=== PATIENT | male | born 1940 | race African-American/Black ===

== ENCOUNTER 2021-07-08 09:52 | Emergency (ER) | payer MEDICARE ==
[~2021-07-08 09:52] MED LIST: ARICEPT 5MG TABL5 MG PO; CEFDINIR300 MG PO; DILTIAZEM125 MG/122 PO; KEPPRA100 MG/1 M PO; MACROBID100 MG PO; MACRODANTIN50 MG PO; METFORMIN HYDRO25 GM PO; METOPROLOL SUCC25 MG PO; PAROXETINE 20MG20 MG PO; PRINIVIL10 MG PO; PROSCAR5 MG PO; PYRIDIUM100 MG PO; SENOKOT8.6 MG PO
[2021-07-08 11:30] LABS: BASOPHIL 0.4 % (0-2); EOSINOPHIL 3.7 % (0-7); HCT 35.4 % (42.0-52.0); HGB 10.8 g/dl (13.2-18.0); MCH 26.5 pg (25.0-31.0); MCHC 30.5 g/dL (32.0-36.0); MCV 86.8 fL (78.0-100.0); MONOCYTE 9.5 % (0-12); MPV 10.9 fL (6.0-9.5); NEUTROPHIL 70.4 % (41-80); NRBC 0; PLT 245 K/uL (150-400); RBC 4.08 M/uL (4.70-6.00); RDW 14.4 % (11.5-14.0); WBC 7.9 K/uL (4.0-10.5)
[2021-07-08 11:46] LABS: ALBUMIN 3.3 g/dL (3.4-5.0); BILIRUBIN - TOTAL 0.2 mg/dL (0.2-1.0); BUN/CREAT RATIO (CALC) 11.6 RATIO; CREATININE 1.12 mg/dL (0.67-1.17); GLOBULIN (CALCULATION) 4.1 g/dL; POTASSIUM 3.8 mmol/L (3.5-5.1); TOTAL PROTEIN 7.4 g/dL (6.4-8.2)
[2021-07-08 12:06] LABS: INR 1.31 (0.9-1.2); PROTHROMBIN TIME 15.6 SECONDS (11.8-13.4); PTT 32.9 SECONDS (24.4-34.7)
[2021-07-08 13:13] LABS: BILIRUBIN 1+ mg/dL (NEGATIVE); BLOOD 3+ Ery/uL (NEGATIVE); CLARITY CLEAR (CLEAR); COLOR YELLOW (YELLOW); GLUCOSE (U) NORMAL (NORMAL); LEUKOCYTES 2+ Leu/uL (NEGATIVE); NITRITE POSITIVE (NEGATIVE); PROTEIN 3+ mg/dL (NEGATIVE); SPECIFIC GRAVITY 1.025 (1.001-1.030)
[2021-07-08 13:26] LABS: BACTERIA 4+; SQUAMOUS EPITHELIAL CELLS RARE; URINARY RBC TNTC
[2021-07-08] MEDS ORDERED: BACTRIM DS TAB1 EACH PO (14:14)
== END 2021-07-08 16:43 | disposition home or self-care (01) ==
LOC: FER 09:52
PROVIDERS: Emergency Medicine
DX: N39.0 Urinary tract infection, site not specified (principal); K59.00 Constipation, unspecified; E11.9 Type 2 diabetes mellitus without complications; I10 Essential (primary) hypertension; Z86.73 Personal history of transient ischemic attack (TIA), and cerebral infarction without residual deficits; Z79.01 Long term (current) use of anticoagulants
CPT/HCPCS: 36415; 80053; 81001; 85025; 85610; 85730; 87077; 87088; 87186

== ENCOUNTER 2021-08-01 11:10 | Emergency (ER) | payer MEDICARE ==
[~2021-08-01 11:10] MED LIST changes: +BACTRIM DS TAB1 EACH PO
[2021-08-01 13:30] LABS: BASOPHIL 0.4 % (0-2); EOSINOPHIL 0.4 % (0-7); HCT 34.7 % (42.0-52.0); HGB 10.5 g/dl (13.2-18.0); LYMPHOCYTE 5.5 % (15-48); MCH 26.7 pg (25.0-31.0); MCHC 30.3 g/dL (32.0-36.0); MCV 88.3 fL (78.0-100.0); MONOCYTE 5.9 % (0-12); MPV 11.2 fL (6.0-9.5); NEUTROPHIL 86.9 % (41-80); NRBC 0; PLT 195 K/uL (150-400); RBC 3.93 M/uL (4.70-6.00); RDW 14.6 % (11.5-14.0); WBC 11.1 K/uL (4.0-10.5)
[2021-08-01 14:20] LABS: ALBUMIN 3.1 g/dL (3.4-5.0); BILIRUBIN - TOTAL 0.2 mg/dL (0.2-1.0); BUN/CREAT RATIO (CALC) 14.7 RATIO; CREATININE 1.02 mg/dL (0.67-1.17); GLOBULIN (CALCULATION) 4.5 g/dL; POTASSIUM 4.3 mmol/L (3.5-5.1); TOTAL PROTEIN 7.6 g/dL (6.4-8.2)
[2021-08-01 15:44] LABS: BILIRUBIN NEGATIVE (NEGATIVE); BLOOD NEGATIVE Ery/uL (NEGATIVE); CLARITY CLEAR (CLEAR); COLOR YELLOW (YELLOW); GLUCOSE (U) NORMAL (NORMAL); LEUKOCYTES NEGATIVE Leu/uL (NEGATIVE); NITRITE NEGATIVE (NEGATIVE); PROTEIN TRACE (LOW) mg/dL (NEGATIVE); SPECIFIC GRAVITY >=1.030 (1.001-1.030); UROBILINOGEN 0.2 mg/dL (0.2-1.0)
[2021-08-01 15:53] LABS: BACTERIA TRACE; MUCOUS TRACE
== END 2021-08-01 17:55 | disposition home or self-care (01) ==
LOC: FER 11:10
PROVIDERS: Nurse Practitioner Family
DX: K59.00 Constipation, unspecified (principal); R11.10 Vomiting, unspecified; E11.9 Type 2 diabetes mellitus without complications; Z86.73 Personal history of transient ischemic attack (TIA), and cerebral infarction without residual deficits; Z88.5 Allergy status to narcotic agent; Z88.6 Allergy status to analgesic agent; Z88.1 Allergy status to other antibiotic agents; Z20.822 Contact with and (suspected) exposure to COVID-19
CPT/HCPCS: 36415; 74022; 80053; 81001; 84484; 85025; 93005; U0002

== ENCOUNTER 2022-06-24 10:33 | Inpatient (IN) | payer OTHER, MEDICARE ==
[~2022-06-24] VITALS: Ht 170.2 cm; Wt 89.0 kg
[2022-06-24 11:41] LABS: BASOPHIL 0.2 % (0-2); EOSINOPHIL 0.1 % (0-7); HCT 34.7 % (42.0-52.0); HGB 10.7 g/dl (13.2-18.0); LYMPHOCYTE 2.6 % (15-48); MCH 26.6 pg (25.0-31.0); MCHC 30.8 g/dL (32.0-36.0); MCV 86.3 fL (78.0-100.0); NRBC 0; PLT 227 K/uL (150-400); RBC 4.02 M/uL (4.70-6.00); RDW 15.1 % (11.5-14.0); WBC 26.7 K/uL (4.0-10.5)
[2022-06-24 11:48] LABS: NEUTROPHIL 90.8 % (41-80)
[2022-06-24 11:51] LABS: INR 1.45 (0.9-1.2); PROTHROMBIN TIME 17.2 SECONDS (11.9-13.9)
[2022-06-24 11:52] LABS: PTT 33.2 SECONDS (24.9-34.6)
[2022-06-24 12:05] LABS: LACTIC ACID 4.1 mmol/L (0.4-1.9)
[2022-06-24 12:14] LABS: ALBUMIN 3.3 g/dL (3.4-5.0); BILIRUBIN - TOTAL 0.5 mg/dL (0.2-1.0); BUN/CREAT RATIO (CALC) 12.9 RATIO; CREATININE 1.63 mg/dL (0.67-1.17); GLOBULIN (CALCULATION) 3.7 g/dL; MAGNESIUM 1.6 mg/dL (1.8-2.4); POTASSIUM 4.5 mmol/L (3.5-5.1)
[2022-06-24 12:36] LABS: CORONAVIRUS 2019 SARS-COV-2 NEGATIVE (NEGATIVE); INFLUENZA A NAA NEGATIVE (NEGATIVE)
[2022-06-24 12:38] LABS: BILIRUBIN NEGATIVE (NEGATIVE); BLOOD TRACE-INTACT Ery/uL (NEGATIVE); CLARITY HAZY (CLEAR); COLOR YELLOW (YELLOW); GLUCOSE (U) NORMAL (NORMAL); LEUKOCYTES 2+ Leu/uL (NEGATIVE); NITRITE POSITIVE (NEGATIVE); PROTEIN TRACE (LOW) mg/dL (NEGATIVE); UROBILINOGEN 0.2 mg/dL (0.2-1.0)
[2022-06-24 13:29] LABS: BACTERIA 3+; SQUAMOUS EPITHELIAL CELLS RARE; URINARY RBC RARE
[2022-06-24] MEDS ORDERED: CRESTOR10 MG PO (18:26)
[2022-06-24] MEDS ORDERED: ISOSORBIDE DINI10 M1 PO (18:27)
[2022-06-24] MEDS ORDERED: POTASSIUM CHLO10 MEQ PO (18:28)
[2022-06-24] MEDS ORDERED: LOPRESSOR25 MG PO (18:29)
[2022-06-24] MEDS ORDERED: FOLIC ACID0.4 MG PO (18:29)
[2022-06-24] MEDS ORDERED: METFORMIN HCL500 MG PO (18:29)
[2022-06-24] MEDS ORDERED: ELIQUIS2.5 MG PO (18:30)
[2022-06-24] MEDS ORDERED: CARDIZEM CD180 MG PO (18:32)
[2022-06-24] MEDS ORDERED: NEURONTIN400 MG PO (18:33)
[2022-06-24] MEDS ORDERED: CARDIZEM60 MG PO (18:43)
[2022-06-24] MEDS ORDERED: CARDIZEM CD120 MG PO (18:44)
[2022-06-25 02:55] LABS: BASOPHIL 0.1 % (0-2); HCT 29.3 % (42.0-52.0); HGB 9.2 g/dl (13.2-18.0); LYMPHOCYTE 5.3 % (15-48); MCH 26.8 pg (25.0-31.0); MCHC 31.4 g/dL (32.0-36.0); MCV 85.4 fL (78.0-100.0); MONOCYTE 6.6 % (0-12); MPV 10.6 fL (6.0-9.5); NEUTROPHIL 82.9 % (41-80); NRBC 0; PLT 174 K/uL (150-400); RBC 3.43 M/uL (4.70-6.00); RDW 15.1 % (11.5-14.0); RETICULOCYTE COUNT 1.7 % (1.0-2.0)
[2022-06-25 03:09] LABS: MAGNESIUM 1.4 mg/dL (1.8-2.4); PHOSPHORUS 3.3 mg/dL (2.6-4.7)
[2022-06-25 03:25] LABS: CREATININE 1.62 mg/dL (0.67-1.17); FT4 (FREE T4) 1.1 ng/dL (0.76-1.46); POTASSIUM 3.8 mmol/L (3.5-5.1)
--- NOTE | 2022-06-25 13:17 | NUR ---
06/25/22 Mr. Wilson lives at home with his spouse. 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 [facility] is current and have been notified of admission. Mr. Wilson hasL hospital bed, tim lift, 02 @ 2 L, portable tanks, and wc. He has recently started being seen at the [facility]. According to Ms. Wilson, they are in the process of enrolling him in the home based community program through [facility].
[2022-06-26 06:25] LABS: BASOPHIL 0.2 % (0-2); EOSINOPHIL 8.8 % (0-7); HCT 29.5 % (42.0-52.0); MCH 26.6 pg (25.0-31.0); MCHC 30.5 g/dL (32.0-36.0); MCV 87.3 fL (78.0-100.0); MONOCYTE 8.4 % (0-12); MPV 10.8 fL (6.0-9.5); NEUTROPHIL 75.9 % (41-80); NRBC 0; PLT 163 K/uL (150-400); RBC 3.38 M/uL (4.70-6.00); RDW 15.2 % (11.5-14.0); WBC 9.6 K/uL (4.0-10.5)
[2022-06-26 07:00] LABS: BUN/CREAT RATIO (CALC) 13.9 RATIO; C-REACTIVE PROTEIN 12.9 mg/dL (<=0.90); CREATININE 1.58 mg/dL (0.67-1.17); PHOSPHORUS 3.2 mg/dL (2.6-4.7); POTASSIUM 3.7 mmol/L (3.5-5.1)
[2022-06-26 07:01] LABS: MAGNESIUM 2.1 mg/dL (1.8-2.4)
--- NOTE | 2022-06-27 05:55 | NUR ---
MIDLINE FLUSHED AND GAVE BLOOD RETURN PRIOR TO INFUSING CEFEPINE 1/2 THROUGH MIDLINE BECAME OCCLUDED. UNABLE TO FLUSH AND PT C/O PAIN . PIV INSERTED TO LEFT HAND 20G CEFEPINE FINSIHED INFUSING AND IVF STARTED.
[2022-06-27 06:23] LABS: BASOPHIL 0.1 % (0-2); EOSINOPHIL 9.5 % (0-7); HCT 28.7 % (42.0-52.0); HGB 8.7 g/dl (13.2-18.0); LYMPHOCYTE 11.1 % (15-48); MCH 26.2 pg (25.0-31.0); MCHC 30.3 g/dL (32.0-36.0); MCV 86.4 fL (78.0-100.0); MPV 11.1 fL (6.0-9.5); NEUTROPHIL 69.4 % (41-80); NRBC 0; PLT 174 K/uL (150-400); RBC 3.32 M/uL (4.70-6.00); RDW 15.1 % (11.5-14.0); WBC 8.1 K/uL (4.0-10.5)
[2022-06-27 07:36] LABS: CREATININE 1.39 mg/dL (0.67-1.17); POTASSIUM 3.6 mmol/L (3.5-5.1)
[2022-06-27 07:38] LABS: FOLIC ACID (SERUM) 19.4 ng/mL (8.6-58.9)
--- NOTE | 2022-06-27 13:39 | NUR ---
06/27/22 Please notify [facility] at [phone] if patient discharges over the weekend.
[2022-06-28 12:46] LABS: BILIRUBIN NEGATIVE (NEGATIVE); BLOOD TRACE-INTACT Ery/uL (NEGATIVE); CLARITY CLEAR (CLEAR); COLOR YELLOW (YELLOW); GLUCOSE (U) NORMAL (NORMAL); LEUKOCYTES TRACE Leu/uL (NEGATIVE); NITRITE NEGATIVE (NEGATIVE); PROTEIN NEGATIVE (NEGATIVE); UROBILINOGEN 0.2 mg/dL (0.2-1.0)
[2022-06-28 13:10] LABS: BACTERIA TRACE; SQUAMOUS EPITHELIAL CELLS RARE
[2022-06-28] MEDS ORDERED: CEFDINIR300 MG PO (14:10)
--- NOTE | 2022-06-28 15:29 | NUR ---
DISCHARGE INSTRUCTIONS PROVIDED TO PATIENT. EMS ARRIVED TO TRANSPORT PATIENT HOME. IV AND MIDLINE REMOVED. PATIENT CLEANED AND CHANGED PER INSERTER PROMOTIONAL ITEM. REPORT GIVEN TO EMT. PATIENT DISCHARGED TO HOME
--- NOTE | 2022-07-01 09:31 | NUR ---
07/01/22 Ms. Wilson called and said the 02 was not working properly. [facility] and [facility] wer requested to contact the Ms. Wilson.
== END 2022-06-28 15:28 | disposition home health service (06) | DRG 871 ==
LOC: FER 10:33 → FICU 14:16 → FTCU 06-25 14:16
PROVIDERS: Emergency Medicine; Nurse Practitioner Acute Care; ADMIT Internal Medicine
PROC: 3E03329 Introduction of Other Anti-infective into Peripheral Vein, Percutaneous Approach (ICD-10-PCS; 2022-06-24)
PROC: B24BZZZ Ultrasonography of Heart with Aorta (ICD-10-PCS; 2022-06-24)
PROC: 05HY33Z Insertion of Infusion Device into Upper Vein, Percutaneous Approach (ICD-10-PCS; principal; 2022-06-25)
DX: A41.9 Sepsis, unspecified organism (principal); R65.21 Severe sepsis with septic shock; N30.00 Acute cystitis without hematuria; N17.9 Acute kidney failure, unspecified; I69.354 Hemiplegia and hemiparesis following cerebral infarction affecting left non-dominant side; J96.11 Chronic respiratory failure with hypoxia; E87.2 Acidosis; I13.0 Hypertensive heart and chronic kidney disease with heart failure and stage 1 through stage 4 chronic kidney disease, or unspecified chronic kidney disease; J98.11 Atelectasis; R65.20 Severe sepsis without septic shock; Z20.822 Contact with and (suspected) exposure to COVID-19; B96.1 Klebsiella pneumoniae [K. pneumoniae] as the cause of diseases classified elsewhere; N18.30 Chronic kidney disease, stage 3 unspecified; E11.22 Type 2 diabetes mellitus with diabetic chronic kidney disease; J43.9 Emphysema, unspecified; G47.33 Obstructive sleep apnea (adult) (pediatric); F41.1 Generalized anxiety disorder; I50.9 Heart failure, unspecified; I48.0 Paroxysmal atrial fibrillation; I25.10 Atherosclerotic heart disease of native coronary artery without angina pectoris; D50.9 Iron deficiency anemia, unspecified; E83.42 Hypomagnesemia; Z95.1 Presence of aortocoronary bypass graft; Z98.61 Coronary angioplasty status; Z79.899 Other long term (current) drug therapy; Z82.49 Family history of ischemic heart disease and other diseases of the circulatory system; Z87.891 Personal history of nicotine dependence; Z95.810 Presence of automatic (implantable) cardiac defibrillator; Z99.81 Dependence on supplemental oxygen; Z90.49 Acquired absence of other specified parts of digestive tract; Z99.3 Dependence on wheelchair
CPT/HCPCS: 36415; 71045; 80048; 80053; 80202; 81001; 82607; 82728; 82746; 82962; 83036; 83540; 83550; 83605; 83735; 83880; 84100; 84145; 84439; 84443; 85025; 85610; 85730; 86140; 87040; 87077; 87088; 87186; 93005; 94010; 94640; 94760; 94762; C1751; C9113; J0692; J2405; J2543; J2916; J3370; J3475; J3480; J7030; J7050; J7120; U0002